=== PATIENT | male | born 1955 | race Caucasian/White ===

== ENCOUNTER 2016-07-16 08:44 | Day surgery (SDC) | payer OTHER ==
--- NOTE | ~2016-07-16 | EGD ---
EGD REPORT [facility] [address] [id number] NAME: ELLI COX YULISSA HARMAN MD : 51 STATUS : REG [facility] PAT#: [id number] AGE: 61 ADM/REG DATE : 07/16/16 MR#: [id number] REPORT SERV DATE: 07/16/16 DICTATED BY: ELMO SHERMAN DATE: 07/16/16 REPORT STATUS : Draft TRANSCRIBED BY: [facility] DATE: 07/16/16 [facility] Patient Name: Elli Cox Date of : 1955 Attending MD: ELMO SHERMAN MD Procedure Date No Time: 07/16/2016 Procedure: Colonoscopy Indications: Screening for colorectal malignant neoplasm Referring MD: DAPHNEY SUAREZ MD Medicines: as per anesthesia Complications: No immediate complications. Procedure: Pre-Anesthesia Assessment: - ASA Grade Assessment: III - A patient with severe systemic disease. After I obtained informed consent, the scope was passed under direct vision. Throughout the procedure, the patient's blood pressure, pulse, and oxygen saturations were monitored continuously. The PCF [id number] was introduced through the anus and advanced to the cecum, identified by appendiceal orifice and ileocecal valve. The colonoscopy was performed without difficulty. The patient tolerated the procedure. The quality of the bowel preparation was adequate to identify polyps. Findings: The perianal and digital rectal examinations were normal. A single medium-mouthed diverticulum was found in the descending colon. Internal hemorrhoids were found during endoscopy and were mild. Impression: - Diverticulosis in the descending colon. - Internal hemorrhoids. Recommendation: - Repeat colonoscopy in 10 years for surveillance. Procedure Code(s): --- Professional --- 24522, Colonoscopy, flexible, proximal to splenic flexure; diagnostic, with or without collection of specimen(s) by brushing or washing, with or without colon decompression (separate procedure) Diagnosis Code(s): --- Professional --- K64.8, Other hemorrhoids K57.30, Diverticulosis of large intestine without perforation or abscess without bleeding Z12.11, Encounter for screening for malignant neoplasm EGD REPORT [facility] [address] [address] NAME: ELLI COX JR, MD : 51 STATUS : REG [facility] PAT#: [id number] AGE: 61 ADM/REG DATE : 07/16/16 MR#: [id number] REPORT SERV DATE: 07/16/16 DICTATED BY: ELMO SHERMAN. DATE: 07/16/16 REPORT STATUS : Draft TRANSCRIBED BY: [employer] DATE: 07/16/16 of colon CPT copyright 2013 [employer]. All rights reserved. The codes documented in this report are preliminary and upon conveyor feeder review may be revised to meet current compliance requirements. ELMO SHERMAN MD 07/16/2016 11:41 AM This report has been signed electronically. Number of Addenda: 0 Note Initiated On: 07/16/2016 10:51 AM Scope Withdrawal Time 0 hours 8 minutes 43 seconds [address] [id number]
--- NOTE | ~2016-07-16 | EGD ---
EGD REPORT [facility] [address] [address] NAME: ELLI COX YULISSA HARMAN MD : 51 STATUS : REG [facility]#: [id number] AGE: 61 ADM/REG DATE : 07/16/16 MR#: [id number] REPORT SERV DATE: 07/16/16 DICTATED BY: ELMO SHERMAN DATE: 07/16/16 REPORT STATUS : Draft [facility]ANSCRIBED BY: [facility] DATE: 07/16/16 Endoscopy Center Patient Name: Elli Cox Date of : 1955 Attending MD: ELMO SHERMAN MD Procedure Date No Time: 07/16/2016 Procedure: Upper GI endoscopy Indications: Epigastric abdominal pain Referring MD: DAPHNEY SUAREZ MD Medicines: as per anesthesia Complications: No immediate complications. Procedure: Pre-Anesthesia Assessment: - ASA Grade Assessment: III - A patient with severe systemic disease. - ASA Grade Assessment: III - A patient with severe systemic disease. After obtaining informed consent, the endoscope was passed under direct vision. Throughout the procedure, the patient's blood pressure, pulse, and oxygen saturations were monitored continuously. The GIF H190 [id number] was introduced through the mouth, and advanced to the third part of duodenum. The upper GI endoscopy was accomplished without difficulty. The patient tolerated the procedure well. Findings: There were esophageal mucosal changes suspicious for long-segment Gunn's esophagus present in the middle third of the esophagus and in the lower third of the esophagus. The maximum longitudinal extent of these mucosal changes was 4 cm in length. Mucosa was biopsied with a cold forceps for histology randomly at intervals of 2 cm at 32 cm from the incisors, at 34 cm from the incisors and at 36 cm from the incisors. A total of 3 specimen bottles were sent to pathology. A small hiatus hernia was present. The examined duodenum was normal. Impression: - Esophageal mucosal changes suspicious for long-segment Gunn's esophagus. Biopsied. - Hiatus hernia. - Normal examined duodenum. Recommendation: - Await pathology results. - Follow an antireflux regimen. - Continue present medications. EGD REPORT [facility] [address] [place]. [address] NAME: ELLI COX JR, MD : 51 STATUS : REG [facility]#: [id number] AGE: 61 ADM/REG DATE : 07/16/16 MR#: [id number] REPORT SERV DATE: 07/16/16 DICTATED BY: ELMO SHERMAN. DATE: 07/16/16 REPORT STATUS : Draft TRANSCRIBED BY: [employer] DATE: 07/16/16 Procedure Code(s): --- Professional --- 34256, Esophagogastroduodenoscopy, flexible, transoral; with biopsy, single or multiple Diagnosis Code(s): --- Professional --- K22.9, Disease of esophagus, unspecified K44.9, Diaphragmatic hernia without obstruction or gangrene R10.13, Epigastric pain CPT copyright 2013 [employer]. All rights reserved. The codes documented in this report are preliminary and upon physician coder review may be revised to meet current compliance requirements. ELMO SHERMAN MD 07/16/2016 11:20 AM This report has been signed electronically. Number of Addenda: 0 Note Initiated On: 07/16/2016 10:46 AM Scope Withdrawal Time 0 hours 0 minutes 0 seconds [address] [place] [address]
[~2016-07-16 08:44] MED LIST: ALEVE220 MG PO; ASA5GR PO; ASAB PO; BETAPACE80 PO; CLARIT10 PO; COREG6 PO; CRESTOR20 MG PO; PLAVIX PO; PRADAXA150 MG PO; PREV15 PO; SINGULAIR1 PO; VITAMIN D1000 UNI1 PO; ZESTRIL20 MG PO
== END 2016-07-16 23:59 | disposition home or self-care (01) ==
LOC: DMU 08:44
PROVIDERS: Internal Medicine Gastroenterology
PROC: 0DJD8ZZ Inspection of Lower Intestinal Tract, Via Natural or Artificial Opening Endoscopic (ICD-10-PCS; principal; 2016-07-16 12:30)
PROC: 0DB58ZX Excision of Esophagus, Via Natural or Artificial Opening Endoscopic, Diagnostic (ICD-10-PCS; 2016-07-16 12:30)
DX: Z12.11 Encounter for screening for malignant neoplasm of colon (principal); K64.8 Other hemorrhoids; K57.30 Diverticulosis of large intestine without perforation or abscess without bleeding; K22.9 Disease of esophagus, unspecified; K44.9 Diaphragmatic hernia without obstruction or gangrene; I48.91 Unspecified atrial fibrillation; I10 Essential (primary) hypertension; I25.10 Atherosclerotic heart disease of native coronary artery without angina pectoris; G47.33 Obstructive sleep apnea (adult) (pediatric); M19.90 Unspecified osteoarthritis, unspecified site; Z90.49 Acquired absence of other specified parts of digestive tract
CPT/HCPCS: 88305